=== PATIENT | female | born 1960 | race Caucasian/White ===

== ENCOUNTER 2022-09-26 05:36 | Day surgery (SDC) | payer OTHER ==
[~2022-09-26] VITALS: Ht 149.9 cm; Wt 73.6 kg
[~2022-09-26 05:36] MED LIST: GABAPENTIN600 MG PO; METOPROLOL SUCC50 MG PO
[2022-09-26 05:57] VITALS: BP 140/82
[2022-09-26] MEDS ORDERED: LIPITOR80 MG GT (06:05)
[2022-09-26] MEDS ORDERED: ST. JOSEPH ASPI81 MG PO (06:06)
--- NOTE | 2022-09-26 08:04 | NUR ---
09/26/22 0804 Sheets,Anamika 0757 PT ARRIVED TO PACU ON 6L VIA MASK, PT ASLEEP AND SMALL AMOUNT OF SNORING NOTED. RESP EVEN AND UNLABORED. ABD SOFT.
[2022-09-26 08:23] VITALS: BP 142/91
--- NOTE | 2022-09-26 11:23 | OR ---
[facility] [address], [place] [address] Signed DATE OF OPERATION: 09/26/2022 SURGEON: Hermann Levy MD PREOPERATIVE DIAGNOSES: 1. Screening. 2. Chronic constipation. POSTOPERATIVE DIAGNOSES: 1. Minimal sigmoid diverticulosis. 2. Minimal internal hemorrhoids with internal anal skin tags. 3. 5 mm polyp at mid right colon. 4. 8 mm polyp at 6 cm. 5. 3 mm polyp at 4 cm. PROCEDURE: Colonoscopy with hot biopsy. ESTIMATED BLOOD LOSS: None. INDICATIONS: Farrukh is a 62-year-old obese female, asked to see me for initial screening colonoscopy. She has no lower GI complaints and no family history of colon cancer or polyps. In the office, I had given her a pamphlet on colonoscopy. We had reviewed that together. She understands the nature of the test. There is risk including but not limited to gas bloating, crampy abdominal pain, bleeding, perforation requiring surgery, and missed diagnosis. We also reviewed the written instructions for the bowel prep line by line. We had her do a double bowel prep which worked out very nicely. Also, she has had previous neck surgery and had to wear a halo for quite some time. 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 We therefore gave her some preoperative antibiotics as well. She had expressed understanding and wished to proceed. PROCEDURE NOTE: Farrukh was taken into the endoscopy suite and placed in the left lateral decubitus position. She was given monitored anesthesia care with propofol infusion per our nurse professor of apologetics. A digital rectal exam was performed and this was unremarkable. There were no external hemorrhoids. She had good sphincter tone. There were no masses. The adult colonoscope was introduced and advanced all around into the cecum under direct visualization of the camera without difficulty. Her prep was quite excellent. The Electronically Signed By: HERMANN LEVY MD 09/26/22 1123 PATIENT NAME: FARRUKH VILLA OPERATIVE REPORT DATE OF : 64 REPORT #: [id number] PHYSICIAN: HERMANN LEVY MD PCP: GUERO HAIR PA-C REPORT IS CONFIDENTIAL AND NOT TO BE RELEASED WITHOUT AUTHORIZATION [facility] [address], [place] [address] Signed scope was then slowly withdrawn. The above-mentioned polyps were taken out with the help of the hot biopsy forceps and snare. We did see a few diverticula in the sigmoid colon. They were small in size, few in number and scattered about. Upon retroflexion of the scope, she does have minimal internal hemorrhoid columns with a couple of small associated skin tags. After this, the gas was suctioned out and the colonoscope removed. Farrukh tolerated the procedure quite well. RECOMMENDATIONS: I will see Farrukh back in my office in 7 to 14 days to review her results. Hermann Levy MD ALB/ISABELLAL /[id number] cc: BRITT Sanchez MD Copies: HERMANN LEVY MD ~ Electronically Signed By: HERMANN LEVY MD 09/26/22 1123 PATIENT NAME: FARRUKH VILLA OPERATIVE REPORT DATE OF : 64 REPORT #: [id number] PHYSICIAN: HERMANN LEVY MD PCP: GUERO HAIR PA-C REPORT IS CONFIDENTIAL AND NOT TO BE RELEASED WITHOUT AUTHORIZATION
--- NOTE | 2022-09-30 12:24 | PATH ---
[facility] [address] [facility] [place], [place] [address] Signed SPECIMEN(S): A MID ASCENDING/RIGHT COLON POLYP SPECIMEN(S): B RECTAL POLYP AT 6 CM SPECIMEN(S): C RECTAL POLYP AT 4 CM SPECIMEN SOURCE: A. MID ASCENDING/RIGHT COLON POLYP B. RECTAL POLYP AT 6 CM C. RECTAL POLYP AT 4 CM CLINICAL HISTORY: Initial screening colonoscopy; family history of colon polyps FINAL PATHOLOGIC DIAGNOSIS: A. Mid ascending / right colon polyp: - Tubular adenoma (one fragment). B. Rectal polyp at 6 cm: - Tubular adenoma (multiple fragments). C. Rectal polyp at 4 cm: - Hyperplastic polyp (three fragments). JVR:[facility] MICROSCOPIC EXAMINATION: Histologic sections of all submitted blocks are examined by light microscopy. These findings, together with the gross examination, support the pathologic diagnosis. GROSS DESCRIPTION: A. The specimen, labeled and designated "Addison, mid ascending colon polyp," is received in formalin and consists of one putnam soft tissue fragment measuring 0.2 cm. Entirely submitted in (A1). B. The specimen, labeled and designated "Addison, rectum polyp at 6 cm," is received in formalin and consists of seven putnam soft tissue fragments, ranging from 0.1 to 0.2 cm. Entirely submitted in (B1). C. The specimen, labeled and designated "Addison, rectal polyp at 4 cm," is received in formalin and consists of three putnam soft tissue fragments, ranging from 0.1 to 0.2 cm. Entirely submitted in (C1). JS (under the direct supervision of a pathologist) The Gross Description was prepared using a voice recognition system. The report was reviewed for accuracy; however, sound-alike word errors, addition and/or PATIENT NAME: FARRUKH ADDISON PATHOLOGY DATE OF : 64 REPORT #: [id number] PHYSICIAN: SINDY RODGERS PCP: GUERO HAIR PA-C REPORT IS CONFIDENTIAL AND NOT TO BE RELEASED WITHOUT AUTHORIZATION [facility] [address] [facility] [place] [address] Signed deletions may occur. If there is any question about this report, please contact Client Services. PERFORMING LABORATORY: Technical component was performed by [email or web address], [address] [place] [address] (CLIA# [id number]). Professional interpretation was performed by [facility] - [facility], [address] [place] [id number] (CLIA#: [id number]). Diagnostician: Flaco Dodson MD Pathologist Electronically Signed 09/30/2022 Copies: ~ PATIENT NAME: FARRUKH ADDISON PATHOLOGY DATE OF : 64 REPORT #: [id number] PHYSICIAN: [facility] PCP: GUERO HAIR PA-C REPORT IS CONFIDENTIAL AND NOT TO BE RELEASED WITHOUT AUTHORIZATION
== END 2022-09-26 08:45 | disposition home or self-care (01) ==
LOC: DS 05:36 → OPS 05:36 → DS 07:30 → OPS 08:45 → DS 09:30
PROVIDERS: ATTEND Colon & Rectal Surgery
PROC: 0DBK8ZZ Excision of Ascending Colon, Via Natural or Artificial Opening Endoscopic (ICD-10-PCS; principal; 2022-09-26 07:30)
DX: Z12.11 Encounter for screening for malignant neoplasm of colon (principal); I10 Essential (primary) hypertension; F41.9 Anxiety disorder, unspecified; I72.9 Aneurysm of unspecified site; I49.9 Cardiac arrhythmia, unspecified; E66.9 Obesity, unspecified; Z68.33 Body mass index [BMI] 33.0-33.9, adult; Z86.73 Personal history of transient ischemic attack (TIA), and cerebral infarction without residual deficits; K57.30 Diverticulosis of large intestine without perforation or abscess without bleeding; D12.2 Benign neoplasm of ascending colon; D12.8 Benign neoplasm of rectum
CPT/HCPCS: 00912; 88305; J0690; J2704; J7121

== ENCOUNTER 2023-09-24 12:45 | Emergency (ER) | payer OTHER ==
[~2023-09-24] VITALS: Ht 149.9 cm; Wt 77.3 kg
[~2023-09-24 12:45] MED LIST changes: +LIPITOR80 MG GT; +ST. JOSEPH ASPI81 MG PO
--- OUTSIDE RECORDS SUMMARY | 2023-09-24 12:45 | XMS ---
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 Rahel VISIT COUNT (12 MO.) 1 CRISTINE Ascencio TOTAL 1 NOTE: Visits indicate total known visits. ED/UCC VISIT TRACKING (12 MO.) 09/24/2023 12:45 CRISTINE Watters OR TYPE: Emergency COMPLAINT: - BACK PAIN INPATIENT VISIT TRACKING (12 MO.) No inpatient visits to display in this time frame [email or web address]
[2023-09-24] MEDS ORDERED: PREDNISONE10 MG PO (13:13)
[2023-09-24] MEDS ORDERED: methylPREDNISolone SOD SUCC 125 MG/2 ML VIAL IV ONE (13:30)
[2023-09-24] MEDS ORDERED: SODIUM CHLORIDE 0.9% 1,000 ML IV PRN (13:30)
[2023-09-24] MEDS ORDERED: KETOROLAC TROMETHAMINE 30 MG/ML VIAL IV ONE (13:30)
[2023-09-24] MEDS ORDERED: diazePAM 10 MG/2 ML SYR IV ONE (13:30)
[2023-09-24] MEDS ORDERED: LIDOCAINE HCL 4% 1 EACH PATCH TD ONE (13:30)
[2023-09-24] MEDS ORDERED: HYDROCODONE/ACETA 5/325 TAB PO ONE (14:45)
[2023-09-24] MEDS ORDERED: CYCLOBENZAPRINE HCL 10 MG TAB PO ONE (14:45)
[2023-09-24] MEDS ORDERED: predniSONE 20 MG TAB PO ONE (14:45)
[2023-09-24] MEDS ORDERED: CYCLOBENZAPRINE10 MG PO (16:24)
[2023-09-24 16:31] VITALS: BP 136/83
[2023-09-24] MEDS ORDERED: LIDOCAINE PATCH REMOVAL 1 EA TD SCH (21:00)
== END 2023-09-24 16:30 | disposition home or self-care (01) ==
LOC: ED 12:45
DX: M54.50 Low back pain, unspecified (principal); Z79.52 Long term (current) use of systemic steroids; Z79.82 Long term (current) use of aspirin; Z79.899 Other long term (current) drug therapy
CPT/HCPCS: 99283; A9270; J7512